=== PATIENT | female | born 1975 | race Caucasian/White ===

== ENCOUNTER 2018-09-02 22:02 | Emergency (ER) | payer SELFPAY ==
[~2018-09-02] VITALS: Ht 162.6 cm; Wt 72.1 kg
[2018-09-02 22:07] VITALS: BP 112/56; PULSE 76; RESP 18; Ht 162.6 cm; Wt 72.1 kg
== END 2018-09-03 02:30 | disposition left against medical advice (07) ==
LOC: FTE 22:02
DX: Z53.21 Procedure and treatment not carried out due to patient leaving prior to being seen by health care provider (principal)